=== PATIENT | male | born 1990 | race Hispanic/Latino ===

== ENCOUNTER 2023-07-04 22:19 | Emergency (ER) | payer SELFPAY ==
[2023-07-04 22:20] VITALS: BP 116/81; BMI 29.2
[2023-07-04 22:21] VITALS: BP 116/81
--- NOTE | 2023-07-04 22:47 | ED.GENMED ---
History of Present Illness
<Tolu Page DO - Last Filed: 07/05/23 22:05>
General
Chief Complaint: Alcohol Problem
Time Seen by Provider: 07/04/23 22:47
Travel History
Have you had any contact with someone who has COVID-19?: Unable to Answer
Do you have any symptoms of coronavirus? Fever > 100 degrees, chills, cough, shortness of breath, sore throat, loss of taste or smell, muscle aches, or headache?: Unable to Answer
<JOHN Muñoz - Last Filed: 07/05/23 00:43>
General
Source: patient
Exam Limitations: other (intoxicated)
Nursing documentation reviewed up to this point in time: agreed with
History of Present Illness
History of Present Illness:
33 y/o M presents to ED after police found patient intoxicated outside. Patient is currently intoxicated and could provide limited history. He reports he had 6 beers around 4-5 pm and was trying to go to his friend's house but ended up at someone
else's house. He left the place and ended up outside. He does not recall any trauma, injuries or fights.
Review of Systems
<Tolu Page DO - Last Filed: 07/05/23 22:05>
Review of Systems
Allergies reviewed?: Yes
Other source history: ambulance crew
All Other Systems: ROS reviewed and negative except as documented in HPI and ROS
Constitutional: Reports no symptoms
EENT: Reports no symptoms
Respiratory: Reports no symptoms
Cardiac: Reports no symptoms
ABD/GI: Reports no symptoms
: Reports no symptoms
Musculoskeletal: Reports no symptoms
Skin: Reports no symptoms
Neurological: Reports no symptoms
Endocrine: Reports no symptoms
Hematologic/Lymphatic: Reports no symptoms
Psychiatric: Reports no symptoms
<JOHN Muñoz - Last Filed: 07/05/23 00:43>
General Physical Exam
General Presentation: other (intoxicated)
General age: appears stated age
General Skin: warm
General Habitus: normal
General Mental: alert
General Hydration: appears well hydrated
Cardiovascular Exam
Cardiovascular Exam: regular rate/rhythm, no edema, no gallop and no murmur
Pulmonary Exam
Pulmonary Exam: lungs clear, no respiratory distress, no rales, no crackles and no rhonchi
Gastrointestinal Exam
Gastrointestinal Exam: non tender and soft
Musculoskeletal Exam
Musculoskeletal Exam: full ROM
Skin Exam
Skin Exam: normal color, no rash and no petechia
Psychiatric Exam
Psychiatric Exam: other (intoxicated )
Scores
<Tolu Page DO - Last Filed: 07/05/23 22:05>
Withdrawal Assessment of Alcohol
Withdrawal Assessment Completed?: No
Course
<Tolu Page DO - Last Filed: 07/05/23 22:05>
Vital Signs
Initial and Last Documented VS:
Initial Vital Signs
Temp Pulse Resp BP Pulse Ox
98.2 F 80 18 116/81 100
07/04/23 22:20 07/04/23 22:20 07/04/23 22:20 07/04/23 22:20 07/04/23 22:20
Last Documented Vital Signs
Temp Pulse Resp BP Pulse Ox
98.2 F 73 11 110/77 97
07/04/23 22:20 07/05/23 06:00 07/05/23 06:00 07/05/23 06:00 07/05/23 06:00
<JOHN Muñoz - Last Filed: 07/05/23 00:43>
Vital Signs
Initial and Last Documented VS:
Initial Vital Signs
Temp Pulse Resp BP Pulse Ox
98.2 F 80 18 116/81 100
07/04/23 22:20 07/04/23 22:20 07/04/23 22:20 07/04/23 22:20 07/04/23 22:20
Last Documented Vital Signs
Temp Pulse Resp BP Pulse Ox
98.2 F 73 11 110/77 97
07/04/23 22:20 07/05/23 06:00 07/05/23 06:00 07/05/23 06:00 07/05/23 06:00
<Tolu Page, DO - Last Filed: 07/05/23 22:05>
*Critical Care Note
Total Time (30-74mins, 75-104mins- exclusive of procedures): Not Applicable
ED Attending Note
<Tolu Page DO - Last Filed: 07/05/23 22:05>
ED Attending Note
Patient seen and examined by attending physician: Yes
I performed the substantive portion of visit, reviewed & personally made and approve the management plan that is documented in note by myself or NOEL.: Yes
ED Attending Note:
33-year-old man who brought in by EMS after police found him asleep on the sidewalk. Patient states that he was drinking alcohol this evening and is intoxicated. He denies trauma. Has no complaints at this time. Patient was seen in conjunction
with the PA student. I have reviewed and agree with the history and treatment plan presented. On my independent physical exam, patient is somnolent and oriented. He is intoxicated.. Heart is regular rate and rhythm. Lungs clear to auscultation
bilaterally. Moves all 4 extremities. No outward signs of trauma.
-
Portions of this chart may have been created with voice recognition software.� Occasional wrong word or��sound alike� substitutions may have occurred due to the inherent limitations of voice recognition software.
Discharge Plan
Departure
Patient Disposition: Home (Routine Discharge)
Date of Disposition: 07/04/23
Time of Disposition: 23:43
Patient with high blood pressure during this ER visit?: No
Condition: Good
Discharge Problem:
Alcohol intoxication
Instructions: Alcohol Use Disorder (DC)
Referrals:
UNKNOWN - PT NOT,INTERVIEWE [Family Provider] -
Interventions
Interventions:
*Risk Screen - Suicide Last Done: 07/05/23 06:19
*General Assessment Last Done: 07/05/23 06:17
*Neglect/Abuse Screening Last Done: 07/05/23 06:19
*Nursing Disposition Last Done: 07/05/23 06:19
ED- Neurological Assessment Last Done: 07/04/23 22:23
ED-Psychological Assessment Last Done: 07/05/23 06:14
Discharge Date and Time
Discharge Date/Time: 07/05/23 06:21
[2023-07-04 23:00] VITALS: BP 109/75
[2023-07-05] VITALS (7 sets, daily range): BP systolic 106–114; BP diastolic 65–77
== END 2023-07-05 06:21 | disposition home or self-care (01) ==
LOC: EMR 22:19
PROVIDERS: EMERGENCY PHYSICIAN Student in an Organized Health Care Education/Training Program
DX: F10.129 Alcohol abuse with intoxication, unspecified (principal)
CPT/HCPCS: 99282